=== PATIENT | male | born 1970 | race Caucasian/White ===

== ENCOUNTER 2016-12-03 11:14 | Observation (INO) ==
--- NOTE | 2016-12-03 11:27 | Emergency Department Note ---
Disposition Clinical Impression: Atrial fibrillation with rapid ventricular response Disposition: Admitted As Inpatient Condition: Good Referrals: Noe Wiggins Jr [Primary Care Provider] - Forms: ED Satisfaction Letter Time of Disposition: 14:45 Arrhythmia/Palpitations HPI - General Chief Complaint: ED Arrhythmia/Palpitations Stated Complaint: feeling weird in chest elevated heart rate Time Seen by Provider: 12/03/16 11:20 Source: patient, EMS Mode of arrival: EMS Limitations: no limitations Nursing Notes Reviewed: Yes Vital Signs Reviewed: Yes - History of Present Illness HPI Narrative: 46-year-old white male comes from dialysis with palpitations. He noticed the palpitations about 30 minutes before finishing dialysis. No chest pain. No shortness of breath. He has a history of atrial fibrillation. Pt Subjective Complaint: "heart racing" Onset (ago): minute(s) (30) Duration: constant Severity: moderate Context: occurred during rest Arrhythmia History: atrial fibrillation Associated symptoms: Reports: denies other symptoms - Related Data Home Medications Medication Instructions Recorded Confirmed ALPRAZolam [Xanax 0.5 MG Tablet] 0.5 mg PO TID PRN 12/13/14 12/03/16 Calcium Acetate [Phos-LO] 1,334 mg PO TIDWM 12/13/14 12/03/16 Cinacalcet HCl [Sensipar] 90 mg PO QPM 12/13/14 12/03/16 Furosemide [Lasix] 20 mg PO DAILY PRN 12/13/14 12/03/16 Gabapentin [Neurontin] 800 mg PO BID 12/13/14 12/03/16 Lisinopril [Zestril] 40 mg PO DAILY 12/13/14 12/03/16 Omeprazole 20 mg PO DAILY 12/13/14 12/03/16 Oxycodone HCl 15 mg PO Q6H PRN 12/13/14 12/03/16 Sevelamer [Renvela] 800 mg PO TIDWM 12/13/14 12/03/16 Folic Acid/Vit Bcomp,C [Dialyvite 0.8 mg PO DAILY 08/10/15 12/03/16 Tablet] Pramipexole Di-HCl [Pramipexole 0.5 mg PO HS 08/10/15 12/03/16 Dihydrochloride] traZODone [TraZODone] 50 mg PO HS 08/10/15 12/03/16 Ondansetron [Zofran] 8 mg PO DAILY PRN 12/08/15 12/03/16 dilTIAZem HCl [Diltiazem 24Hr ER] 240 mg PO DAILY 12/08/15 12/03/16 Ipratropium/Albuterol Sulfate 4 gm IH PRN PRN 12/03/16 12/03/16 [Combivent Respimat Inhal [place]] Lactobacillus Acidophilus 1 each PO BID 12/03/16 12/03/16 [Acidophilus Lactobacilli] Simethicone [Bicarsim] 80 mg PO Q8H PRN 12/03/16 12/03/16 Varenicline Tartrate [Chantix] 1 mg PO BID 12/03/16 12/03/16 Allergies Allergy/AdvReac Type Severity Reaction Status Date / Time No Known Allergies Allergy Verified 12/13/14 13:25 All systems ED: reviewed and negative except as stated. Constitutional: Denies: fever, chills Cardiovascular: Reports: palpitations. Denies: chest pain Respiratory: Denies: cough, dyspnea Gastrointestinal: Denies: abdominal pain, nausea, vomiting Musculoskeletal: Denies: back pain Past Medical History - Past Medical History Medical history: Reports: atrial fibrillation, dialysis, GERD, hyperlipidemia, hypertension, SVT, thyroid disease, other Surgical history: Reports: other Psychiatric history: Reports: anxiety - Social History Smoking Status: Current every day smoker Smokeless Tobacco Status: No Alcohol use: Reports: none Drug use: Reports: none Physical Exam - General Limitations: no limitations General appearance: alert, in no apparent distress - Head Head exam: atraumatic, normocephalic - Eye Eye exam: Present: PERRL, EOMI - ENT ENT exam: normal oropharynx, mucous membranes moist - Neck Neck exam: Present: normal inspection, full ROM, trachea midline. Absent: lymphadenopathy - Respiratory Respiratory exam: Present: normal lung sounds bilaterally. Absent: respiratory distress, wheezes - Cardiovascular Cardiovascular exam: Present: tachycardia, irregular rhythm, systolic murmur (2/ 6 left sternal border) - Abdominal Exam Abdominal exam: Present: soft, Non-Tender. Absent: organomegaly, mass - Extremities Exam Extremities exam: Present: other (Fistula right volar forearm with a palpable thrill.) - Neurological Exam Neurological exam: Present: alert, oriented X3 - Psychiatric Psychiatric exam: Present: normal affect, normal mood - Skin Skin exam: Present: warm, dry, intact. Absent: cyanosis, diaphoresis Course Vital Signs Temperature 99.5 F 12/03/16 11:16 Pulse Rate 128 12/03/16 11:16 Respiratory Rate 16 12/03/16 11:16 Blood Pressure 149/115 12/03/16 11:16 O2 Sat by Pulse Oximetry 91 12/03/16 11:16 Temperature 99.5 F 12/03/16 11:18 Pulse Rate 104 12/03/16 14:18 Respiratory Rate 20 12/03/16 14:18 Blood Pressure 123/75 12/03/16 14:18 O2 Sat by Pulse Oximetry 98 12/03/16 14:18 Oxygen Delivery Oxygen Delivery Nasal Cannula Arrhythmia/Palpitations - [facility] Narrative Medical decision making narrative: Patient was bolused with Cardizem and placed on a Cardizem drip. His rate is between 101 10 at this point in time. He is still in atrial fibrillation. He has never had any chest pain. His initial troponin was 0.06 and his repeat troponin 2 hours later was 0.06. He spoke with Dr. Browning. He will be admitted to an observation bed for further control of his atrial fibrillation. Does receive dialysis today and will not need dialysis tomorrow. - Differential Diagnosis Differential Diagnosis: Likely: palpitations, anxiety, sinus tachycardia, artial arrhythmia, ventricular premature beats, supraventricular tachycardia, ventricular tachycardia, metabolic/electrolyte disturbance, undetermined arrhythmia - Lab Data Lab results reviewed: Yes I reviewed the patient's lab results. Result diagrams: 12/03/16 11:31 12/03/16 11:31 Lab Results 12/03/16 12/03/16 12/03/16 Range/Units 11:31 11:31 11:31 WBC 5.7 (4.3-11.1) K/mcL RBC 3.20 L (4.19-5.50) M/mcL Hgb 9.9 L (12.9-16.9) g/dL Hct 30.1 L (37.5-50.1) % MCV 94.1 (83.0-100.0) fL MCH 30.9 (28.0-33.3) pg MCHC 32.9 (31.6-35.5) g/dL RDW 14.6 H (11.5-14.5) % Plt Count 128 L (140-400) K/mcL MPV 10.2 (9.4-12.4) fL Immature Gran % 0.4 (0-4) % Seg Neutrophils % 68.0 % Lymphocytes % 20.6 % Monocytes % 6.9 % Eosinophils % 3.4 % Basophils % 0.7 % Neutrophils # 3.9 (1.6-8.9) K/mcL Lymphocytes # 1.2 (0.6-4.6) K/mcL Monocytes # 0.4 (0.0-1.3) K/mcL Eosinophils # 0.2 (0.0-0.6) K/mcL Basophils # 0.0 (0.0-0.2) K/mcL PT 12.5 H (9.4-12.1) Seconds INR 1.2 Sodium 139 (136-145) mEq/L Potassium 3.3 L (3.5-4.5) mEq/L Chloride 95 L (98-109) mEq/L Carbon Dioxide 28 (19-29) mEq/L BUN 26 (8-26) mg/dL Creatinine 6.57 H (0.72-1.25) mg/dL Est GFR ( Amer) 11 L (> 60) Est GFR (Non-Af Amer) 9 L (> 60) BUN/Creatinine Ratio 4 L (6-26) Glucose 84 (70-99) mg/dL Calculated Osmolality 292 (280-300) Calcium 9.4 (8.6-10.8) mg/dL Total Bilirubin 1.0 (0.2-1.2) mg/dL AST 11 (5-34) Units/L ALT 14 (0-55) Units/L Alkaline Phosphatase 66 (38-126) Units/L Troponin I (0-0.03) ng/mL Serum Total Protein 7.1 (6.0-8.3) g/dL Albumin 3.3 L (3.5-5.0) g/dL Globulin 3.8 H (2.4-3.5) g/dL Albumin/Globulin Ratio 0.9 L (1.1-2.2) 12/03/16 12/03/16 Range/Units 11:31 13:47 WBC (4.3-11.1) K/mcL RBC (4.19-5.50) M/mcL Hgb (12.9-16.9) g/dL Hct (37.5-50.1) % MCV (83.0-100.0) fL MCH (28.0-33.3) pg MCHC (31.6-35.5) g/dL RDW (11.5-14.5) % Plt Count (140-400) K/mcL MPV (9.4-12.4) fL Immature Gran % (0-4) % Seg Neutrophils % % Lymphocytes % % Monocytes % % Eosinophils % % Basophils % % Neutrophils # (1.6-8.9) K/mcL Lymphocytes # (0.6-4.6) K/mcL Monocytes # (0.0-1.3) K/mcL Eosinophils # (0.0-0.6) K/mcL Basophils # (0.0-0.2) K/mcL PT (9.4-12.1) Seconds INR Sodium (136-145) mEq/L Potassium (3.5-4.5) mEq/L Chloride (98-109) mEq/L Carbon Dioxide (19-29) mEq/L BUN (8-26) mg/dL Creatinine (0.72-1.25) mg/dL Est GFR ( Amer) (> 60) Est GFR (Non-Af Amer) (> 60) BUN/Creatinine Ratio (6-26) Glucose (70-99) mg/dL Calculated Osmolality (280-300) Calcium (8.6-10.8) mg/dL Total Bilirubin (0.2-1.2) mg/dL AST (5-34) Units/L ALT (0-55) Units/L Alkaline Phosphatase (38-126) Units/L Troponin I 0.06 H* 0.06 H* (0-0.03) ng/mL Serum Total Protein (6.0-8.3) g/dL Albumin (3.5-5.0) g/dL Globulin (2.4-3.5) g/dL Albumin/Globulin Ratio (1.1-2.2) - Radiology Data Radiology results reviewed: Yes I reviewed the patient's radiology results. Impressions Chest X-Ray 12/03/16 11:22 IMPRESSION: Stable cardiomegaly. Patchy airspace opacities at the bilateral parahilar regions, likely related to mild pulmonary edema, grossly stable. Atelectasis and small pleural effusion at the left lung base. D/ / Sami Lopes MD / Sami Lopes MD Interpreting Provider: Sami Lopes MD - EKG Data EKG attestation: Yes I reviewed and interpreted this EKG. EKG results narrative: Atrial fibrillation with RVR with a rate of 131. Nonspecific ST-T changes. Rhythm strip shows atrial fibrillation with a rate of 131, QRS of 97 ms with premature ventricular contractions.
[2016-12-03 11:45] LABS: Basophils % 0.7 %; Eosinophils # 0.2 K/mcL (0.0-0.6); Eosinophils % 3.4 %; Hematocrit 30.1 % (37.5-50.1); Hemoglobin 9.9 g/dL (12.9-16.9); Immature Granulocytes % 0.4 % (0-4); Lymphocytes # 1.2 K/mcL (0.6-4.6); Lymphocytes % 20.6 %; Mean Corpuscular HGB Conc 32.9 g/dL (31.6-35.5); Mean Corpuscular Hemoglobin 30.9 pg (28.0-33.3); Mean Corpuscular Volume 94.1 fL (83.0-100.0); Mean Platelet Volume 10.2 fL (9.4-12.4); Monocytes # 0.4 K/mcL (0.0-1.3); Monocytes % 6.9 %; Neutrophils # 3.9 K/mcL (1.6-8.9); Platelet Count 128 K/mcL (140-400); Red Cell Distribution Width 14.6 % (11.5-14.5)
[2016-12-03 11:48] LABS: INR 1.2; Prothrombin Time 12.5 Seconds (9.4-12.1)
[2016-12-03 12:02] LABS: Albumin 3.3 g/dL (3.5-5.0); Albumin/Globulin Ratio 0.9 (1.1-2.2); Calcium 9.4 mg/dL (8.6-10.8); Globulin 3.8 g/dL (2.4-3.5); Potassium 3.3 mEq/L (3.5-4.5); Total Protein 7.1 g/dL (6.0-8.3)
[2016-12-03] MEDS ORDERED: *HR* OxyCODONE/APAP 5/325 TABLET PO ONE (12:31)
[2016-12-03] MEDS ORDERED: Ondansetron ODT 4 MG TAB.RAPDIS PO PRN (15:38)
[2016-12-03] MEDS ORDERED: Simethicone 80 MG TAB.CHEW PO PRN (15:38)
[2016-12-03] MEDS ORDERED: Furosemide 20 MG TABLET PO PRN (15:38)
[2016-12-03] MEDS ORDERED: ALPRAZolam 0.5 MG TABLET PO PRN (15:38)
[2016-12-03] MEDS ORDERED: Naloxone 0.4 MG/ML INJ IVP PRN (15:38)
[2016-12-03] MEDS ORDERED: Ipratropium/Albuterol Neb 3 ML IH PRN (16:00)
--- NOTE | 2016-12-03 16:31 | Electrocardiograph Report ---
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
[2016-12-03] MEDS ORDERED: *HR* Digoxin 0.25 MG TABLET PO ONE (18:16)
[2016-12-03] MEDS: Calcium Acetate 667 MG CAPSULE PO SCH (18:24)
[2016-12-03] MEDS: *HR* OxyCODONE Immed Rel 15 MG TABLET PO PRN (18:24)
[2016-12-03] MEDS: Diltiazem CD (24hr) 240 MG CAPSULE PO SCH (18:24)
--- NOTE | 2016-12-03 18:30 | Internal Med History&Physical ---
Date of Encounter: 12/03/16 Time of Encounter: 17:50 Assessment and Plan (1) Atrial fibrillation with rapid ventricular response Current visit: Yes Status: Acute He will be given oral diltiazem and started on metoprolol and Lanoxin. Cardizem drip will be discontinued for now. (2) Hypokalemia Current visit: Yes Status: Acute Etiology not certain. We will give oral replacement dose and recheck labs in a.m. Internal Medicine - H&P: HPI Chief complaint: Palpitations Admitted From: Home Plans for Post Hospital Care: Home History of present illness: Mr. Santana is a 46 year old male who was brought from dialysis center to emergency after he complained of palpitations during dialysis. He denied chest pain or dyspnea. He was evaluated in emergency room and found to have AF with RVR. He was placed on Cardizem drip and admitted to [facility] floor for ongoing care needs. He has had atrial fibrillation in the past with most recent episode approximately year ago. He does not take antiarrhythmic medication and is not on OAC. His vascular history is significant otherwise for hypertension. He denies ME or heart failure. He has pericardial effusion in the past with pericardial window placed December 2014. Echocardiogram done at that time showed LVEF of 55%. He denies DVT or pulmonary embolus. Past Med Surg Social Fam HX - Past Medical History Medical history: atrial fibrillation, dialysis, GERD, hyperlipidemia, hypertension, SVT, thyroid disease, other Psychiatric history: anxiety - Past Surgical History Surgical History: other - Social History Smoking Status: Current every day smoker Smokeless Tobacco Status: No Alcohol use: none Drug use: none - Family History Father Hx Family Endocrine Disorder: Yes Internal Medicine - H&P: Meds ALPRAZolam [Xanax 0.5 MG Tablet] 0.5 mg PO TID PRN 12/13/14 [History] Calcium Acetate [Phos-LO] 1,334 mg PO TIDWM 12/13/14 [History] Cinacalcet HCl [Sensipar] 90 mg PO QPM 12/13/14 [History] Furosemide [Lasix] 20 mg PO DAILY PRN 12/13/14 [History] Gabapentin [Neurontin] 800 mg PO BID 12/13/14 [History] Lisinopril [Zestril] 40 mg PO DAILY 08/03/15 [History] Omeprazole 20 mg PO DAILY 12/13/14 [History] Oxycodone HCl 15 mg PO Q6H PRN 12/13/14 [History] Sevelamer [Renvela] 800 mg PO TIDWM 12/13/14 [History] Folic Acid/Vit Bcomp,C [Dialyvite Tablet] 0.8 mg PO DAILY 08/10/15 [History] Pramipexole Di-HCl [Pramipexole Dihydrochloride] 0.5 mg PO HS 08/10/15 [History] traZODone [TraZODone] 50 mg PO HS 08/10/15 [History] Ondansetron [Zofran] 8 mg PO DAILY PRN 12/08/15 [History] dilTIAZem HCl [Diltiazem 24Hr ER] 240 mg PO DAILY 12/08/15 [History] Ipratropium/Albuterol Sulfate [Combivent Respimat Inhal [place]] 4 gm IH PRN PRN 12/03/16 [History] Lactobacillus Acidophilus [Acidophilus Lactobacilli] 1 each PO BID 12/03/16 [ History] Simethicone [Bicarsim] 80 mg PO Q8H PRN 12/03/16 [History] Varenicline Tartrate [Chantix] 1 mg PO BID 12/03/16 [History] Allergies No Known Allergies Allergy (Verified 12/13/14 13:25) All Systems PM: A 10-system review of systems was performed and is negative for pertinent findings except as documented above in the HPI. Review of systems: Gen.: He states his weight has been stable the past few months Cardiovascular: As per history of present illness Respiratory: He has smoked since age 17 never up to 1 pack per day. He denies chronic lung disease and does not wear home oxygen GI: He has occasional GERD symptoms. He denies other disorders of his liver gallbladder or exocrine pancreas : He has CKD stage V and undergoes MWF hemodialysis. He denies other kidney bladder prostate disorders. Neurologic: He denies large distribution strokes or seizures Endocrine: He denies diabetes thyroid disease or hyperlipidemia Hematology/oncology: He has anemia and thrombocytopenia on emergency room labs. He denies internal malignancies or other blood disorders Psychiatric: He has anxiety but no significant depression or other mental health issues Musk skeletal: He states he has occasional "sore joints" but denies other bone joint or muscle disorders. - Constitutional Vitals: Temp Pulse Resp BP Pulse Ox 98.6 F 99 17 144/88 92 12/03/16 16:07 12/03/16 16:07 12/03/16 16:07 12/03/16 16:07 12/03/16 16:07 Exam: Gen.: He is a well-developed well-nourished male who appears in no acute distress HEENT: Head is atraumatic and normocephalic. Eyes: EOMI. There is no scleral icterus. Mouth: Mucosa is moist. Neck: Supple and nontender. There is no thyromegaly or adenopathy noted. Heart: Irregularly irregular with rate approximately 108/m Lungs: No wheezes or crackles are heard. Abdomen: Soft and nontender. No masses or guarding noted. Extremities: There is no cyanosis edema or clubbing noted. Dorsalis pedis and posterior tibial pulses are 1-2 over 2 bilaterally. Neurologic: Mental status: He is talkative and a good historian. Cranial nerves : Smile is symmetric. Forehead wrinkles bilaterally. Tongue protrudes midline. EOMI. Motor: There is no pronator drift. Cerebellar: Finger to nose is intact bilaterally. Skin: Warm and dry Internal Med - H&P Results - Labs CBC & Chem 7: 12/03/16 11:31 12/03/16 11:31
[2016-12-03] MEDS: Lactobacillus 1 EACH CAP.SPRINK PO SCH (19:59)
[2016-12-03] MEDS: traZODone 50 MG TABLET PO SCH ×2 (20:45→22:14)
[2016-12-03] MEDS ORDERED: Lisinopril 20 MG TABLET PO SCH (21:00)
[2016-12-03] MEDS ORDERED: Gabapentin 300 MG CAPSULE PO SCH ×2 (21:00)
[2016-12-04] MEDS: *HR* OxyCODONE Immed Rel 15 MG TABLET PO PRN (04:12)
[2016-12-04 04:35] LABS: Basophils % 0.6 %; Eosinophils # 0.1 K/mcL (0.0-0.6); Eosinophils % 2.5 %; Hematocrit 31.2 % (37.5-50.1); Hemoglobin 9.9 g/dL (12.9-16.9); Immature Granulocytes % 0.4 % (0-4); Lymphocytes # 1.3 K/mcL (0.6-4.6); Lymphocytes % 25.1 %; Mean Corpuscular HGB Conc 31.7 g/dL (31.6-35.5); Mean Corpuscular Hemoglobin 30.7 pg (28.0-33.3); Mean Corpuscular Volume 96.9 fL (83.0-100.0); Mean Platelet Volume 10.8 fL (9.4-12.4); Monocytes # 0.4 K/mcL (0.0-1.3); Monocytes % 6.9 %; Neutrophils # 3.3 K/mcL (1.6-8.9); Platelet Count 140 K/mcL (140-400); Red Blood Count 3.22 M/mcL (4.19-5.50); Red Cell Distribution Width 14.6 % (11.5-14.5); Segmented Neutrophils % 64.5 %
[2016-12-04 04:51] LABS: Calcium 8.7 mg/dL (8.6-10.8); Magnesium 2.6 mg/dL (1.6-2.6); Potassium 4.5 mEq/L (3.5-4.5)
[2016-12-04 07:41] VITALS: BP 132/93
[2016-12-04] MEDS: Diltiazem CD (24hr) 240 MG CAPSULE PO SCH (08:18)
[2016-12-04] MEDS: Calcium Acetate 667 MG CAPSULE PO SCH (08:18)
[2016-12-04] MEDS: Lactobacillus 1 EACH CAP.SPRINK PO SCH (08:18)
[2016-12-04] MEDS ORDERED: Gabapentin 300 MG CAPSULE PO SCH (09:00)
[2016-12-04] MEDS ORDERED: Multivit/Ca/Min/Fe/FA 1 TAB TABLET PO SCH (09:00)
[2016-12-04] MEDS ORDERED: Diltiazem CD (24hr) 240 MG CAPSULE PO SCH (09:00)
[2016-12-04] MEDS ORDERED: Lisinopril 20 MG TABLET PO SCH (09:00)
--- NOTE | 2016-12-04 09:13 | Discharge Summary ---
Date of Encounter: 12/04/16 Time of Encounter: 08:55 - Discharge Diagnosis (1) Atrial fibrillation with rapid ventricular response Priority: Primary Status: Acute (2) Hypokalemia Priority: Secondary Status: Resolved - Discharge Medications Prescriptions: Metoprolol XL (24 HR) Succ [Toprol XL] 25 mg PO DAILY #30 tab.er.24h Home Medications: ALPRAZolam [Xanax 0.5 MG Tablet] 0.5 mg PO TID PRN 12/13/14 [History] Calcium Acetate [Phos-LO] 1,334 mg PO TIDWM 12/13/14 [History] Cinacalcet HCl [Sensipar] 90 mg PO QPM 12/13/14 [History] Furosemide [Lasix] 20 mg PO DAILY PRN 12/13/14 [History] Gabapentin [Neurontin] 800 mg PO BID 12/13/14 [History] Lisinopril [Zestril] 40 mg PO BID 12/13/14 [History] Omeprazole 20 mg PO DAILY 12/13/14 [History] Oxycodone HCl 15 mg PO Q6H PRN 12/13/14 [History] Sevelamer [Renvela] 800 mg PO TIDWM 12/13/14 [History] Folic Acid/Vit Bcomp,C [Dialyvite Tablet] 0.8 mg PO DAILY 08/10/15 [History] Pramipexole Di-HCl [Pramipexole Dihydrochloride] 0.5 mg PO HS 08/10/15 [History] traZODone [TraZODone] 50 mg PO HS 08/10/15 [History] Ondansetron [Zofran] 8 mg PO DAILY PRN 12/08/15 [History] dilTIAZem HCl [Diltiazem 24Hr ER] 240 mg PO DAILY 12/08/15 [History] Ipratropium/Albuterol Sulfate [Combivent Respimat Inhal [place]] 4 gm IH PRN PRN 12/03/16 [History] Lactobacillus Acidophilus [Acidophilus Lactobacilli] 1 each PO BID 12/03/16 [ History] Simethicone [Bicarsim] 80 mg PO Q8H PRN 12/03/16 [History] Varenicline Tartrate [Chantix] 1 mg PO BID 12/03/16 [History] Metoprolol XL (24 HR) Succ [Toprol XL] 25 mg PO DAILY #30 tab.er.24h 12/04/16 [ Rx] Allergies/Adverse Reactions: Allergies No Known Allergies Allergy (Verified 12/13/14 13:25) Date of admission: 12/03/16 14:48 Primary care physician: Noe Wiggins Jr Consults: 12/03/16 16:51 Consult to Senior Consumer Insights Consultant [CONS] Routine Reason for SW Consult: patient requests to speak with psych social worker about financial concerns and financial aide - Patient Status Disposition: Home, Self-Care Condition: Good Functional capacity at discharge: independent ambulation Overall status at discharge: patient is progressing back to baseline - Discharge Instructions Follow Up With: Noe Wiggins Jr [Primary Care Provider] - 1 week - Diet and Activity Activity: resume usual activities as tolerated Diet: advance to your usual diet Hospital course: Mr. Santana is a 46 year old male who was brought from dialysis center to emergency after he complained of palpitations during dialysis. He denied chest pain or dyspnea. He was evaluated in emergency room and found to have AF with RVR. He was placed on Cardizem drip and admitted to [facility] for ongoing care needs. Initial orders were written by the emergency room physician. I saw him the afternoon of December 03 and performed a history and physical. He was given oral diltiazem, metoprolol, and a dose of Lanoxin. The Cardizem drip was discontinued. His heart rate returned to a satisfactory range. Repeat cardiac enzymes showed troponin stable. He remained in atrial fibrillation. When I saw him on December 04 he felt improved and wished to be discharged home. He will follow with his PCP later this morning. I told him to discuss with his PCP anticoagulation for the persistent atrial fibrillation. He will be given Toprol-XL in addition to his other home medications to improve rate control and overall blood pressure. - Time Spent with Patient Total time spent providing and/or coordinating discharge services: - Constitutional Vitals: Temp Pulse Resp BP Pulse Ox 97.9 F 71 18 132/93 96 12/04/16 07:40 12/04/16 07:40 12/04/16 07:40 12/04/16 07:40 12/04/16 07:40
== END 2016-12-04 09:40 | disposition home or self-care (01) ==
LOC: INPPIK 11:14 → EMEROOPIK 11:14 → INPPIK 15:58
PROVIDERS: ADMIT Emergency Medicine; ATTEND Internal Medicine